=== PATIENT | male | born 1950 | race Caucasian/White ===

== ENCOUNTER 2016-09-26 19:33 | Emergency (ER) | payer MEDICARE ==
[~2016-09-26] VITALS: Ht 175.3 cm; Wt 81.0 kg
[~2016-09-26 19:33] MED LIST: FOLIC ACID1 MG PO; LANTUS100 MG/ML SC; LISINOPRIL5 MG PO; METFORMIN500 MG PO; NOVOLIN R
[2016-09-26 20:30] LABS: HEMATOCRIT 30.6 % (39.0-50.0); HEMOGLOBIN 10.5 g/dl (14.0-18.0); IMMATURE GRANULOCYTES 0.4 % (0.0-1.0); MEAN CELL VOLUME 88.4 fL CALC (80.0-100.0); MEAN CORPUSCULAR HGB 30.3 pG CALC (26.0-32.0); MEAN CORPUSCULAR HGB CONC 34.3 g/L CALC (32.0-36.0); NEUT# 6.59 thou/uL (1.82-7.42); RED BLOOD COUNT 3.46 mill/uL (4.70-6.10); RED CELL DISTRI WIDTH 11.9 % (11.5-15.5)
[2016-09-26 20:49] LABS: ALBUMIN 4.2 g/dL (3.2-5.0); BILIRUBIN, TOTAL 0.4 mg/dL (0.0-1.4); CALCIUM 9.6 mg/dL (8.4-10.2); CREATININE 1.5 mg/dL (0.7-1.3); POTASSIUM 4.6 mmol/l (3.5-5.1); TOTAL PROTEIN 8.2 g/dL (6.3-8.2)
[2016-09-26 20:50] LABS: INFLUENZA A NONE DETECTED (NONE DETECT); INFLUENZA B NONE DETECTED (NONE DETECT)
[2016-09-26 23:00] VITALS: BP 143/75
== END 2016-09-26 23:38 | disposition short-term general hospital (02) ==
LOC: ED 19:33
DX: R74.8 Abnormal levels of other serum enzymes (principal); R50.9 Fever, unspecified; E11.9 Type 2 diabetes mellitus without complications; I10 Essential (primary) hypertension; R06.02 Shortness of breath; R05 Cough; Z79.4 Long term (current) use of insulin

== ENCOUNTER 2017-11-01 11:32 | Emergency (ER) | payer MEDICARE ==
[~2017-11-01] VITALS: Ht 175.3 cm; Wt 60.0 kg
[~2017-11-01 11:32] MED LIST changes: +FERROUS SULFAT325 MG PO; +METHIMAZOLE10 MG PO
[2017-11-01] MEDS ORDERED: KEFLEX500 M1 PO (13:28)
[2017-11-01 13:30] VITALS: BP 134/77
== END 2017-11-01 13:33 | disposition home or self-care (01) ==
LOC: ED 11:32
PROC: 0HQ0XZZ Repair Scalp Skin, External Approach (ICD-10-PCS; principal; 2017-11-01)
DX: S01.01XA Laceration without foreign body of scalp, initial encounter (principal); S50.811A Abrasion of right forearm, initial encounter; I10 Essential (primary) hypertension; E11.9 Type 2 diabetes mellitus without complications; K21.9 Gastro-esophageal reflux disease without esophagitis; W01.190A Fall on same level from slipping, tripping and stumbling with subsequent striking against furniture, initial encounter; Y92.002 Bathroom of unspecified non-institutional (private) residence as the place of occurrence of the external cause

== ENCOUNTER 2017-11-10 08:09 | Emergency (ER) | payer MEDICARE ==
[~2017-11-10] VITALS: Ht 175.3 cm; Wt 68.0 kg
[~2017-11-10 08:09] MED LIST changes: +KEFLEX500 M1 PO
[2017-11-10 08:27] VITALS: BP 135/77
== END 2017-11-10 08:30 | disposition home or self-care (01) ==
LOC: ED 08:09
DX: S01.01XD Laceration without foreign body of scalp, subsequent encounter (principal); X58.XXXD Exposure to other specified factors, subsequent encounter; I10 Essential (primary) hypertension; E11.9 Type 2 diabetes mellitus without complications; K21.9 Gastro-esophageal reflux disease without esophagitis

== ENCOUNTER 2017-11-21 18:10 | Emergency (ER) | payer MEDICARE ==
[~2017-11-21] VITALS: Ht 175.3 cm; Wt 68.1 kg
[2017-11-21] MEDS ORDERED: METOPROL TAR25 MG PO (18:44)
[2017-11-21] MEDS ORDERED: OMEPRAZOLE10 MG PO (18:45)
[2017-11-21] MEDS ORDERED: ATORVASTATIN CA10 MG PO (18:46)
[2017-11-21 19:13] LABS: HEMATOCRIT 32.8 % (39.0-50.0); HEMOGLOBIN 10.6 g/dl (14.0-18.0); IMMATURE GRANULOCYTES 0.4 % (0.0-1.0); MEAN CELL VOLUME 93.7 fL CALC (80.0-100.0); MEAN CORPUSCULAR HGB 30.3 pG CALC (26.0-32.0); MEAN CORPUSCULAR HGB CONC 32.3 g/L CALC (32.0-36.0); NEUT# 7.06 thou/uL (1.82-7.42); RED BLOOD COUNT 3.5 mill/uL (4.70-6.10); RED CELL DISTRI WIDTH 12.5 % (11.5-15.5)
[2017-11-21 19:21] LABS: ALBUMIN 4.1 g/dL (3.2-5.0); ALKALINE PHOSPHATASE 110 u/l (38-126); ANION GAP 19 (6-22 (CALC)); BILIRUBIN, TOTAL 0.5 mg/dL (0.0-1.4); BUN 27 mg/dL (8-23); BUN/CREATININE RATIO 22 (12-20 (CALC)); CARBON DIOXIDE 26 mmol/l (22-30); CHLORIDE 102 mmol/l (95-108); CREATININE 1.2 mg/dL (0.7-1.3); GFR > 60 ML/MIN (>=60 (CALC)); GFR FOR AFR.AMER. > 60 ML/MIN (>=60 (CALC)); POTASSIUM 4.2 mmol/l (3.5-5.1); SGOT/AST 23 u/l (19-48); SGPT/ALT 41 u/l (11-66); SODIUM 142 mmol/l (137-146); TOTAL PROTEIN 7.7 g/dL (6.3-8.2)
[2017-11-21 19:58] VITALS: BP 177/84
== END 2017-11-21 20:31 | disposition home or self-care (01) ==
LOC: ED 18:10
DX: S20.411A Abrasion of right back wall of thorax, initial encounter (principal); S20.222A Contusion of left back wall of thorax, initial encounter; B34.9 Viral infection, unspecified; I10 Essential (primary) hypertension; E11.9 Type 2 diabetes mellitus without complications; K21.9 Gastro-esophageal reflux disease without esophagitis; F03.90 Unspecified dementia, unspecified severity, without behavioral disturbance, psychotic disturbance, mood disturbance, and anxiety; W18.11XA Fall from or off toilet without subsequent striking against object, initial encounter; Y92.091 Bathroom in other non-institutional residence as the place of occurrence of the external cause

== ENCOUNTER 2017-11-22 13:38 | Emergency (ER) | payer MEDICARE ==
[~2017-11-22] VITALS: Ht 175.3 cm; Wt 60.0 kg
[~2017-11-22 13:38] MED LIST changes: +ATORVASTATIN CA10 MG PO; +METOPROL TAR25 MG PO; +OMEPRAZOLE10 MG PO
[2017-11-22 14:39] LABS: HEMATOCRIT 29.5 % (39.0-50.0); HEMOGLOBIN 9.7 g/dl (14.0-18.0); IMMATURE GRANULOCYTES 0.6 % (0.0-1.0); MEAN CELL VOLUME 93.7 fL CALC (80.0-100.0); MEAN CORPUSCULAR HGB 30.8 pG CALC (26.0-32.0); MEAN CORPUSCULAR HGB CONC 32.9 g/L CALC (32.0-36.0); NEUT# 11.24 thou/uL (1.82-7.42); RED BLOOD COUNT 3.15 mill/uL (4.70-6.10); RED CELL DISTRI WIDTH 12.3 % (11.5-15.5)
[2017-11-22 14:53] LABS: ALBUMIN 3.9 g/dL (3.2-5.0); ALKALINE PHOSPHATASE 99 u/l (38-126); ANION GAP 21 (6-22 (CALC)); BILIRUBIN, TOTAL 0.6 mg/dL (0.0-1.4); BUN 27 mg/dL (8-23); BUN/CREATININE RATIO 24 (12-20 (CALC)); CARBON DIOXIDE 24 mmol/l (22-30); CHLORIDE 99 mmol/l (95-108); CREATININE 1.1 mg/dL (0.7-1.3); GFR > 60 ML/MIN (>=60 (CALC)); GFR FOR AFR.AMER. > 60 ML/MIN (>=60 (CALC)); SGOT/AST 36 u/l (19-48); SGPT/ALT 47 u/l (11-66); SODIUM 140 mmol/l (137-146); TOTAL PROTEIN 7.6 g/dL (6.3-8.2)
[2017-11-22 16:05] VITALS: BP 165/84
== END 2017-11-22 16:05 | disposition home or self-care (01) ==
LOC: ED 13:38
PROVIDERS: Emergency Medicine
DX: S00.83XA Contusion of other part of head, initial encounter (principal); S51.012A Laceration without foreign body of left elbow, initial encounter; R04.0 Epistaxis; W01.0XXA Fall on same level from slipping, tripping and stumbling without subsequent striking against object, initial encounter; Y93.89 Activity, other specified; Y92.128 Other place in nursing home as the place of occurrence of the external cause

== ENCOUNTER 2017-11-24 13:08 | Emergency (ER) | payer MEDICARE ==
[~2017-11-24] VITALS: Ht 175.3 cm; Wt 60.0 kg
[2017-11-24] MEDS ORDERED: KEFLEX500 M1 PO (13:56)
[2017-11-24 14:01] VITALS: BP 101/60
== END 2017-11-24 14:15 | disposition home or self-care (01) ==
LOC: ED 13:08
PROC: 0H98XZZ Drainage of Buttock Skin, External Approach (ICD-10-PCS; principal; 2017-11-24)
DX: S30.0XXA Contusion of lower back and pelvis, initial encounter (principal); L03.317 Cellulitis of buttock; I10 Essential (primary) hypertension; F03.90 Unspecified dementia, unspecified severity, without behavioral disturbance, psychotic disturbance, mood disturbance, and anxiety; E11.9 Type 2 diabetes mellitus without complications; K21.9 Gastro-esophageal reflux disease without esophagitis; W19.XXXA Unspecified fall, initial encounter; Z91.81 History of falling

== ENCOUNTER 2017-12-04 10:34 | Inpatient (IN) | payer MEDICARE ==
[~2017-12-04] VITALS: Ht 175.3 cm; Wt 59.6 kg
[2017-12-04 11:28] LABS: HEMATOCRIT 27.9 % (39.0-50.0); HEMOGLOBIN 8.7 g/dl (14.0-18.0); IMMATURE GRANULOCYTES 1.1 % (0.0-1.0); MEAN CELL VOLUME 96.5 fL CALC (80.0-100.0); MEAN CORPUSCULAR HGB 30.1 pG CALC (26.0-32.0); MEAN CORPUSCULAR HGB CONC 31.2 g/L CALC (32.0-36.0); NEUT# 4.53 thou/uL (1.82-7.42); RED BLOOD COUNT 2.89 mill/uL (4.70-6.10); RED CELL DISTRI WIDTH 12.6 % (11.5-15.5)
[2017-12-04 11:48] LABS: ANION GAP 11 (6-22 (CALC)); BUN 22 mg/dL (8-23); BUN/CREATININE RATIO 21 (12-20 (CALC)); CARBON DIOXIDE 28 mmol/l (22-30); CHLORIDE 107 mmol/l (95-108); CREATININE 1.1 mg/dL (0.7-1.3); GFR > 60 ML/MIN (>=60 (CALC)); GFR FOR AFR.AMER. > 60 ML/MIN (>=60 (CALC)); POTASSIUM 4.6 mmol/l (3.5-5.1); SODIUM 140 mmol/l (137-146)
[2017-12-04 15:32] VITALS: BP 161/75
[2017-12-04 16:21] LABS: URINE BILIRUBIN - DIPSTICK NEGATIVE (NEGATIVE); URINE BLOOD DIPSTICK NEGATIVE (NEGATIVE); URINE COLOR YELLOW; URINE GLUCOSE - DIPSTICK NEGATIVE (NEGATIVE); URINE KETONE NEGATIVE (NEGATIVE); URINE LEUK ESTERASE NEGATIVE (NEGATIVE); URINE NITRITE - DIPSTICK NEGATIVE (Negative); URINE PH 6.5 (4.5-8.0); URINE PROTEIN - DIPSTICK NEGATIVE (NEG-TRACE); URINE UROBILINOGEN - DIPSTICK 0.2 E.U./dL (0.2)
[2017-12-04 17:41] LABS: URINE CLARITY CLEAR
[2017-12-04 19:00] VITALS: BP 151/62
[2017-12-05 04:00] VITALS: BP 129/57
[2017-12-05 06:11] LABS: HEMATOCRIT 26.1 % (39.0-50.0); HEMOGLOBIN 8.1 g/dl (14.0-18.0); MEAN CELL VOLUME 96.3 fL CALC (80.0-100.0); MEAN CORPUSCULAR HGB 29.9 pG CALC (26.0-32.0); NEUT# 4.47 thou/uL (1.82-7.42); RED BLOOD COUNT 2.71 mill/uL (4.70-6.10); RED CELL DISTRI WIDTH 12.5 % (11.5-15.5)
[2017-12-05 06:27] LABS: ANION GAP 9 (6-22 (CALC)); BUN 22 mg/dL (8-23); BUN/CREATININE RATIO 17 (12-20 (CALC)); CARBON DIOXIDE 30 mmol/l (22-30); CHLORIDE 106 mmol/l (95-108); CREATININE 1.3 mg/dL (0.7-1.3); GFR 55 ML/MIN (>=60 (CALC)); GFR FOR AFR.AMER. > 60 ML/MIN (>=60 (CALC)); POTASSIUM 4.7 mmol/l (3.5-5.1); SODIUM 141 mmol/l (137-146)
[2017-12-05 06:32] LABS: MAGNESIUM 1.3 mg/dL (1.6-2.3)
[2017-12-05 08:21] VITALS: BP 165/74
[2017-12-05 16:10] VITALS: BP 153/70
[2017-12-05 19:23] VITALS: BP 116/54
[2017-12-06 00:05] VITALS: BP 115/52
[2017-12-06 04:00] VITALS: BP 129/63
[2017-12-06 05:23] LABS: HEMOGLOBIN 7.9 g/dl (14.0-18.0); IMMATURE GRANULOCYTES 0.8 % (0.0-1.0); MEAN CELL VOLUME 95.4 fL CALC (80.0-100.0); MEAN CORPUSCULAR HGB 30.2 pG CALC (26.0-32.0); MEAN CORPUSCULAR HGB CONC 31.6 g/L CALC (32.0-36.0); NEUT# 4.29 thou/uL (1.82-7.42); RED BLOOD COUNT 2.62 mill/uL (4.70-6.10); RED CELL DISTRI WIDTH 12.5 % (11.5-15.5)
[2017-12-06 08:05] VITALS: BP 137/70
[2017-12-06 11:00] VITALS: BP 145/62
[2017-12-06 15:20] VITALS: BP 154/61
[2017-12-06 19:05] VITALS: BP 149/63
[2017-12-07 00:08] VITALS: BP 115/50
[2017-12-07 04:28] VITALS: BP 151/65
[2017-12-07 07:59] VITALS: BP 167/79
[2017-12-07 12:46] LABS: HEMOGLOBIN 9.3 g/dl (14.0-18.0); MEAN CELL VOLUME 97.1 fL CALC (80.0-100.0); MEAN CORPUSCULAR HGB 30.1 pG CALC (26.0-32.0); RED BLOOD COUNT 3.09 mill/uL (4.70-6.10); RED CELL DISTRI WIDTH 12.7 % (11.5-15.5)
[2017-12-07 13:07] LABS: CREATININE 1.4 mg/dL (0.7-1.3)
[2017-12-07 15:31] VITALS: BP 147/68
[2017-12-07 19:20] VITALS: BP 136/65
[2017-12-08 04:01] VITALS: BP 152/56
[2017-12-08 06:02] LABS: HEMATOCRIT 25.4 % (39.0-50.0); MEAN CELL VOLUME 95.8 fL CALC (80.0-100.0); MEAN CORPUSCULAR HGB 30.2 pG CALC (26.0-32.0); MEAN CORPUSCULAR HGB CONC 31.5 g/L CALC (32.0-36.0); RED BLOOD COUNT 2.65 mill/uL (4.70-6.10); RED CELL DISTRI WIDTH 12.7 % (11.5-15.5)
[2017-12-08 06:35] LABS: CREATININE 1.5 mg/dL (0.7-1.3); MAGNESIUM 1.6 mg/dL (1.6-2.3); POTASSIUM 5.1 mmol/l (3.5-5.1)
[2017-12-08 08:06] VITALS: BP 136/66
[2017-12-08 14:05] VITALS: BP 148/71
[2017-12-08 19:25] VITALS: BP 146/69
[2017-12-09 04:28] VITALS: BP 150/77
[2017-12-09 05:38] LABS: HEMATOCRIT 26.6 % (39.0-50.0); HEMOGLOBIN 8.3 g/dl (14.0-18.0); IMMATURE GRANULOCYTES 0.6 % (0.0-1.0); MEAN CELL VOLUME 96.7 fL CALC (80.0-100.0); MEAN CORPUSCULAR HGB 30.2 pG CALC (26.0-32.0); MEAN CORPUSCULAR HGB CONC 31.2 g/L CALC (32.0-36.0); NEUT# 5.41 thou/uL (1.82-7.42); RED BLOOD COUNT 2.75 mill/uL (4.70-6.10); RED CELL DISTRI WIDTH 12.9 % (11.5-15.5)
[2017-12-09 05:58] LABS: ANION GAP 8 (6-22 (CALC)); BUN 22 mg/dL (8-23); BUN/CREATININE RATIO 18 (12-20 (CALC)); CARBON DIOXIDE 30 mmol/l (22-30); CHLORIDE 104 mmol/l (95-108); CREATININE 1.2 mg/dL (0.7-1.3); GFR > 60 ML/MIN (>=60 (CALC)); GFR FOR AFR.AMER. > 60 ML/MIN (>=60 (CALC)); POTASSIUM 4.8 mmol/l (3.5-5.1); SODIUM 138 mmol/l (137-146)
[2017-12-09 07:35] VITALS: BP 160/77
[2017-12-09] MEDS ORDERED: CEFEPIME2 GM IV (09:50)
[2017-12-09] MEDS ORDERED: VANCOMYCIN1000 MG IV (09:51)
[2017-12-09 10:19] VITALS: BP 160/77
== END 2017-12-09 10:45 | DRG 603 ==
LOC: ED 10:34 → ED-I 13:30 → ED 13:52 → MS2 13:53
PROVIDERS: Family Medicine; Nurse Practitioner; Nurse Practitioner Family; ADMIT Internal Medicine; ATTEND Internal Medicine
PROC: 0H9AXZZ Drainage of Inguinal Skin, External Approach (ICD-10-PCS; principal; 2017-12-05)
PROC: 02HV33Z Insertion of Infusion Device into Superior Vena Cava, Percutaneous Approach (ICD-10-PCS; 2017-12-08)
PROC: B518ZZA Fluoroscopy of Superior Vena Cava, Guidance (ICD-10-PCS; 2017-12-08)
DX: L02.214 Cutaneous abscess of groin (principal); L03.317 Cellulitis of buttock; I10 Essential (primary) hypertension; E11.9 Type 2 diabetes mellitus without complications; K21.9 Gastro-esophageal reflux disease without esophagitis; L03.314 Cellulitis of groin; F09 Unspecified mental disorder due to known physiological condition; E83.42 Hypomagnesemia; E78.5 Hyperlipidemia, unspecified; F03.90 Unspecified dementia, unspecified severity, without behavioral disturbance, psychotic disturbance, mood disturbance, and anxiety; D63.8 Anemia in other chronic diseases classified elsewhere; Z91.81 History of falling; Z79.84 Long term (current) use of oral hypoglycemic drugs
CPT/HCPCS: J0692; J3475; Q9967

== ENCOUNTER 2018-03-11 08:17 | Emergency (ER) | payer MEDICARE ==
[~2018-03-11] VITALS: Ht 175.3 cm; Wt 65.0 kg
[~2018-03-11 08:17] MED LIST changes: +CEFEPIME2 GM IV; +VANCOMYCIN1000 MG IV
[2018-03-11 09:12] LABS: HEMATOCRIT 32.8 % (39.0-50.0); HEMOGLOBIN 10.9 g/dl (14.0-18.0); IMMATURE GRANULOCYTES 0.4 % (0.0-5.0); MEAN CELL VOLUME 90.6 fL CALC (80.0-100.0); MEAN CORPUSCULAR HGB 30.1 pG CALC (26.0-32.0); MEAN CORPUSCULAR HGB CONC 33.2 g/L CALC (32.0-36.0); NEUT# 6.31 thou/uL (1.82-7.42); RED BLOOD COUNT 3.62 mill/uL (4.70-6.10); RED CELL DISTRI WIDTH 12.5 % (11.5-15.5)
[2018-03-11 09:18] LABS: ALBUMIN 4.1 g/dL (3.2-5.0); ALKALINE PHOSPHATASE 82 u/l (38-126); ANION GAP 18 (6-22 (CALC)); BILIRUBIN, TOTAL 0.4 mg/dL (0.0-1.4); BUN 31 mg/dL (8-23); BUN/CREATININE RATIO 24 (12-20 (CALC)); CARBON DIOXIDE 22 mmol/l (22-30); CHLORIDE 102 mmol/l (95-108); CREATININE 1.3 mg/dL (0.7-1.3); GFR 55 ML/MIN (>=60 (CALC)); GFR FOR AFR.AMER. > 60 ML/MIN (>=60 (CALC)); POTASSIUM 4.1 mmol/l (3.5-5.1); SGOT/AST 36 u/l (19-48); SGPT/ALT 56 u/l (11-66); TOTAL PROTEIN 7.6 g/dL (6.3-8.2)
[2018-03-11 09:30] LABS: SODIUM 138 mmol/l (137-146)
[2018-03-11] MEDS ORDERED: MULTIVITAMI9 PO (09:53)
[2018-03-11] MEDS ORDERED: ACIDOPHILUS1 CAP PO (09:55)
[2018-03-11 10:06] LABS: URINE BILIRUBIN - DIPSTICK NEGATIVE (NEGATIVE); URINE BLOOD DIPSTICK TRACE-LYSED (NEGATIVE); URINE COLOR YELLOW; URINE GLUCOSE - DIPSTICK NEGATIVE (NEGATIVE); URINE KETONE NEGATIVE (NEGATIVE); URINE LEUK ESTERASE NEGATIVE (NEGATIVE); URINE NITRITE - DIPSTICK NEGATIVE (Negative); URINE PH 6.5 (4.5-8.0); URINE UROBILINOGEN - DIPSTICK 0.2 E.U./dL (0.2)
[2018-03-11 10:07] LABS: URINE CLARITY CLEAR; URINE PROTEIN - DIPSTICK Trace mg/dL (NEG-TRACE)
[2018-03-11] MEDS ORDERED: ONDANSETRON4 MG PO (10:37)
[2018-03-11 10:42] VITALS: BP 176/84
== END 2018-03-11 11:20 | disposition short-term general hospital (02) ==
LOC: ED 08:17
PROVIDERS: Emergency Medicine
DX: R53.1 Weakness (principal); R11.10 Vomiting, unspecified; E11.9 Type 2 diabetes mellitus without complications; I10 Essential (primary) hypertension; K21.9 Gastro-esophageal reflux disease without esophagitis

== ENCOUNTER 2019-03-28 10:06 | Emergency (ER) | payer MEDICARE ==
[~2019-03-28] VITALS: Ht 175.3 cm; Wt 70.0 kg
[~2019-03-28 10:06] MED LIST changes: +ACIDOPHILUS1 CAP PO; +MULTIVITAMI9 PO; +ONDANSETRON4 MG PO
[2019-03-28] MEDS ORDERED: HYDROCO/APAP1 TA9 PO (11:30)
[2019-03-28 11:46] VITALS: BP 169/81
== END 2019-03-28 11:46 ==
LOC: ED 10:06
DX: S22.41XA Multiple fractures of ribs, right side, initial encounter for closed fracture (principal); S50.311A Abrasion of right elbow, initial encounter; E11.9 Type 2 diabetes mellitus without complications; I10 Essential (primary) hypertension; W18.2XXA Fall in (into) shower or empty bathtub, initial encounter; Y93.E1 Activity, personal bathing and showering; Y92.091 Bathroom in other non-institutional residence as the place of occurrence of the external cause; Z79.84 Long term (current) use of oral hypoglycemic drugs